=== PATIENT | female | born 1980 | race African-American/Black ===

== ENCOUNTER 2017-12-16 10:38 | Outpatient (CLI) | payer MEDICAID ==
[2017-12-16 11:27] LABS: ABSOLUTE EOSINOPHILS # (AUTO) 0.1 10^3/uL (0.0-0.6); ABSOLUTE LYMPHOCYTES (AUTO) 1.8 10^3/uL (0.5-4.7); ABSOLUTE MONOCYTES (AUTO) 0.5 10^3/uL (0.1-1.4); ABSOLUTE NEUT (AUTO) 6.5 10^3/uL (1.7-8.2); BASOPHILS % (AUTO) 0.4 % (0-2); EOSINOPHILS % (AUTO) 1.3 % (0-6); HEMATOCRIT 33.2 % (36.0-47.0); HEMOGLOBIN 10.9 g/dL (12.0-15.5); MEAN CORPUSCULAR HEMOGLOBIN 26.6 pg (27.0-33.4); MEAN CORPUSCULAR VOLUME 81 fl (80-97); MONOCYTES % (AUTO) 5.3 % (3-13); PLATELET COUNT 372 10^3/uL (150-450); RED BLOOD COUNT 4.11 10^6/uL (3.72-5.28); RED CELL DISTRIBUTION WIDTH 14.9 % (11.5-14.0); TOTAL CELLS COUNTED % (AUTO) 100 %; WHITE BLOOD COUNT 8.9 10^3/uL (4.0-10.5)
[2017-12-16 11:41] LABS: ALANINE AMINOTRANSFERASE 21 U/L (9-52); ALBUMIN 3.5 g/dL (3.5-5.0); ALKALINE PHOSPHATASE 104 U/L (38-126); ANION GAP 13 (5-19); ASPARTATE AMINO TRANSFERASE 13 U/L (14-36); BILIRUBIN,DIRECT 0.2 mg/dL (0.0-0.4); BILIRUBIN,TOTAL 0.2 mg/dL (0.2-1.3); BLOOD UREA NITROGEN 5 mg/dL (7-20); CALCIUM 9.7 mg/dL (8.4-10.2); CARBON DIOXIDE 23 mmol/L (22-30); CHLORIDE 106 mmol/L (98-107); GLUCOSE 101 mg/dL (75-110); POTASSIUM 4.2 mmol/L (3.6-5.0); SODIUM 141.5 mmol/L (137-145); TOTAL PROTEIN 6.6 g/dL (6.3-8.2)
--- NOTE | 2017-12-16 11:43 | RADIOLOGY REPORT (SQ) ---
EXAM DESCRIPTION: U/S OB LIMITED COMPLETED DATE/TIME: 12/16/2017 11:33 am REASON FOR STUDY: patel and growth- limited care COMPARISON: None. TECHNIQUE: Limited transvaginal grayscale ultrasound for evaluation of specific requested obstetrica l parameters. LIMITATIONS: None. FINDINGS: heart rate 157. Posterior grade 1 placenta. Vertex presentation. PATEL 13.0. Gestational age 35 weeks 1 day. IMPRESSION: LIMITED OBSTETRICAL ULTRASOUND WITH MEASURED PARAMETERS DELINEATED ABOVE. Trimester of : Third trimester - 28 weeks to delivery. TECHNICAL DOCUMENTATION: JOB ID: [id number] [employer]- All Rights Reserved Reading location - IP/workstation name: Unknown
[2017-12-16 13:40] LABS: UR PRO/CREAT RATIO RESULT 0.2 mg/mg (0.0-0.2); URINE CREATININE 67.4 mg/dL (16-327)
--- NOTE | 2017-12-16 14:25 | L&D Progress Notes ---
PROGRESS NOTES Datetime Report Generated by CPN: 12/16/2017 14:25 PROGRESS NOTE Impression Other: Hypertension Plan Other: Home with followup Steven Vital Signs : Reviewed Comment: Pt with some mild range hypertension. will begin labetolol and check 24 hour urine protein. Followup MOn. FETUS A FHR - Baseline: 140 Variability: Moderate 6-25bpm FHR Category: Category I : 35.0 SIGNATURE SIGNATURE: [id number] Signature: with User ID: [email or web address]
[2017-12-16 14:30] LABS: URIC ACID 5.2 mg/dL (2.5-7.0)
[2017-12-16 14:34] LABS: APPEARANCE,URINE SLIGHTLY-CLOUDY; BILIRUBIN,URINE NEGATIVE (NEGATIVE); COLOR,URINE YELLOW; GLUCOSE, URINE NEGATIVE (NEGATIVE); KETONES,URINE TRACE mg/dL (NEGATIVE); LEUKOCYTE ESTERASE,URINE SMALL (NEGATIVE); NITRITE,URINE NEGATIVE (NEGATIVE); PROTEIN,URINE NEGATIVE (NEGATIVE); URINE SPECIFIC GRAVITY 1.009; UROBILINOGEN,URINE NEGATIVE mg/dL (<2.0)
== END 2017-12-16 14:38 | disposition home or self-care (01) ==
LOC: LC 10:38
PROVIDERS: ATTEND Obstetrics & Gynecology
PROC: 4A1HXCZ Monitoring of Products of Conception, Cardiac Rate, External Approach (ICD-10-PCS; principal; 2017-12-16)
DX: O16.3 Unspecified maternal hypertension, third trimester (principal); Z3A.34 34 weeks gestation of pregnancy
CPT/HCPCS: 36415; 59025; 76815; 80053; 81005; 82570; 83615; 84156; 84550; 85025

== ENCOUNTER 2018-01-18 11:26 | Inpatient (IN) | payer MEDICAID ==
--- NOTE | 2018-01-18 11:32 | Non Stress Test Report ---
Non Stress Test Datetime Report Generated by CPN: 01/18/2018 11:32 DEMOGRAPHIC EGA NST: 34.0 INDICATION Indication for Study: Ordered by Provider VITAL SIGNS Temperature - NST: 97.9 Pulse - NST: 90 RESP - NST: 20 NBPSYS NST: 146 NBPDIA NST: 81 MONITORING Monitor Explained: Monitor Explained; Test Explained; Patient Verbalized Understanding Time on Monitor: 12/16/2017 12:40 NST INTERVENTIONS NST Interventions: PO Hydration Physician Notified NST: Dr Pretty BABY A: [id number] BABY A Movement : Present Contraction Frequency : occasional Accelerations : 15X15 Decelerations : None Variability : Moderate 6-25bpm NST Review: Meets Criteria for Reactive NST NST Review and Verified By : Lola Velásquez RNC NST Results: Reactive NST REPORT Report Trigger: Send Report
[2018-01-18 12:04] LABS: APPEARANCE,URINE CLOUDY; BILIRUBIN,URINE NEGATIVE (NEGATIVE); COLOR,URINE YELLOW; GLUCOSE, URINE NEGATIVE (NEGATIVE); KETONES,URINE NEGATIVE (NEGATIVE); LEUKOCYTE ESTERASE,URINE SMALL (NEGATIVE); NITRITE,URINE NEGATIVE (NEGATIVE); PROTEIN,URINE 30 mg/dL (NEGATIVE); UROBILINOGEN,URINE NEGATIVE mg/dL (<2.0)
[2018-01-18 12:28] LABS: URINE AMPHETAMINES SCREEN NEGATIVE; URINE BARBITURATES SCREEN NEGATIVE; URINE BENZODIAZEPINES SCREEN NEGATIVE; URINE METHADONE SCREEN NEGATIVE; URINE PHENCYCLIDINE SCREEN NEGATIVE
[2018-01-18 12:33] LABS: BACTERIA (WET MOUNT) 4+ BACTERIA SEEN; EPITHELIALS (WET MOUNT) 3+ EPITHELIALS SEEN; RBCS (WET MOUNT) 1+ RBCS SEEN; T.VAGINALIS (WET MOUNT) NO TRICHOMONAS SEEN; WBCS (WET MOUNT) 2+ WBCS SEEN; YEAST (WET MOUNT) BUDDING YEAST SEEN
[2018-01-18 12:37] LABS: UR PRO/CREAT RATIO RESULT 0.2 mg/mg (0.0-0.2); URINE PROTEIN 36.7 mg/dL (<12)
[2018-01-18 12:38] LABS: ABSOLUTE BASOPHILS # (AUTO) 0.1 10^3/uL (0.0-0.2); ABSOLUTE EOSINOPHILS # (AUTO) 0.1 10^3/uL (0.0-0.6); ABSOLUTE LYMPHOCYTES (AUTO) 2.2 10^3/uL (0.5-4.7); ABSOLUTE MONOCYTES (AUTO) 0.6 10^3/uL (0.1-1.4); ABSOLUTE NEUT (AUTO) 7.5 10^3/uL (1.7-8.2); BASOPHILS % (AUTO) 0.5 % (0-2); EOSINOPHILS % (AUTO) 0.8 % (0-6); HEMATOCRIT 35.1 % (36.0-47.0); HEMOGLOBIN 11.6 g/dL (12.0-15.5); LYMPHOCYTES % (AUTO) 20.7 % (13-45); MEAN CORPUSCULAR HEMOGLOBIN 27.1 pg (27.0-33.4); MEAN CORPUSCULAR HGB CONC 32.9 g/dL (32.0-36.0); MEAN CORPUSCULAR VOLUME 83 fl (80-97); MONOCYTES % (AUTO) 6.2 % (3-13); PLATELET COUNT 336 10^3/uL (150-450); RED BLOOD COUNT 4.26 10^6/uL (3.72-5.28); RED CELL DISTRIBUTION WIDTH 15.5 % (11.5-14.0); SEGMENTED NEUTROPHILS % (AUTO) 71.8 % (42-78); TOTAL CELLS COUNTED % (AUTO) 100 %; WHITE BLOOD COUNT 10.4 10^3/uL (4.0-10.5)
[2018-01-18 12:39] LABS: URINE COCAINE SCREEN UNCONFIRMED POSITIVE; URINE MARIJUANA (THC) SCREEN UNCONFIRMED POSITIVE
[2018-01-18 12:55] LABS: ALANINE AMINOTRANSFERASE 26 U/L (9-52); ALBUMIN 3.4 g/dL (3.5-5.0); ALKALINE PHOSPHATASE 145 U/L (38-126); ANION GAP 12 (5-19); ASPARTATE AMINO TRANSFERASE 21 U/L (14-36); BILIRUBIN,DIRECT 0.2 mg/dL (0.0-0.4); BILIRUBIN,TOTAL 0.2 mg/dL (0.2-1.3); BLOOD UREA NITROGEN 18 mg/dL (7-20); CARBON DIOXIDE 19 mmol/L (22-30); CHLORIDE 111 mmol/L (98-107); GLUCOSE 101 mg/dL (75-110); LDH 328 U/L (313-618); POTASSIUM 4.8 mmol/L (3.6-5.0); SODIUM 141.8 mmol/L (137-145); TOTAL PROTEIN 6.7 g/dL (6.3-8.2); URIC ACID 9.2 mg/dL (2.5-7.0)
[2018-01-18] MEDS ORDERED: RINGERS SOLUTION,LACTATED 1,000 ML IV ONE (12:59)
[2018-01-18] MEDS ORDERED: RINGERS SOLUTION,LACTATED 1,000 ML IV PRN (12:59)
[2018-01-18] MEDS ORDERED: BETAMET ACET/BETAMET NA INJ 6 MG/1 ML IM ONE (13:00)
[2018-01-18] MEDS ORDERED: MAGNESIUM SULFATE 4 GM/100 ML RTUPB IV ONE ×2 (13:01→14:00)
[2018-01-18] MEDS ORDERED: LABETALOL HCL 200 MG TABLET PO SCH ×2 (13:15→22:00)
[2018-01-18 13:27] LABS: RUBELLA INTERPRETATION POSITIVE
[2018-01-18] MEDS ORDERED: BUPIVACAINE HCL 0.25 % INJ/PF (2.5 MG/1 ML) 30 ML VIAL ONE (13:49)
[2018-01-18] MEDS ORDERED: FENTANYL/BUPIVACAINE/NS/PF 300 MCG/150 ML RTUINJ EPI ONE (13:49)
[2018-01-18] MEDS ORDERED: EPHEDRINE SULFATE INJ 50 MG/1 ML AMPULE ONE (13:49)
[2018-01-18] MEDS ORDERED: MISOPROSTOL 0.2 MG TABLET ONE (13:49)
[2018-01-18] MEDS ORDERED: LIDOCAINE 1% INJ-PF (10 MG/ML) 30 ML SDV ONE (13:50)
[2018-01-18] MEDS ORDERED: OXYTOCIN/NORMAL SALINE 0 UNIT/0 ML RTUINJ ONE (13:50)
[2018-01-18 13:58] LABS: CHLAM PCR NOT DETECTED (NOT DETECT); GON PCR NOT DETECTED (NOT DETECT)
[2018-01-18] MEDS ORDERED: PENICILLIN G POTASSIUM 5,000,000 UNIT in DEXTROSE 5%-WATER 100 ML IV ONE (14:00)
[2018-01-18] MEDS ORDERED: MAGNESIUM SULFATE/D5W 1 GM/100 ML RTUPB IV SCH (14:00)
[2018-01-18] MEDS ORDERED: LABETALOL HCL 200 MG TABLET PO ONE (14:00)
[2018-01-18 14:13] LABS: INTERNATIONAL RATION (INR) 0.94; PARTIAL THROMBOPLASTIN TIME 26.7 SEC (23.5-35.8); PROTHROMBIN TIME 13.1 SEC (11.4-15.4)
[2018-01-18] MEDS ORDERED: OXYTOCIN/NORMAL SALINE 20 UNIT/1,000 ML RTUINJ IV PRN ×2 (15:20→17:44)
[2018-01-18] MEDS ORDERED: NORMAL SALINE 250 ML IV PRN (15:33)
[2018-01-18] MEDS ORDERED: DEXTROSE 5%-LACTATED RINGERS 1,000 ML IV ONE (15:45)
[2018-01-18] MEDS ORDERED: FENTANYL CITRATE INJ/PF 100 MCG/2 ML AMPUL IV ONE (16:09)
[2018-01-18] MEDS ORDERED: FENTANYL CITRATE INJ/PF 100 MCG/2 ML AMPUL ONE ×2 (16:10→17:11)
--- NOTE | 2018-01-18 16:24 | Admission Physical ---
Datetime Report Generated by CPN: 01/18/2018 16:24 CURRENT ADMISSION Hx Assessment: No Care except for one visit with nurse at [facility] and one at [facility] Chief Complaint: Uterine Contractions Indication for Induction: Not Applicable Admit Impression : Term, Intrauterine Admit Plan: Admit to Unit; Initiate Labor Protocol; Initiate Protocol ALLERGIES Medication Allergies: No Medication Allergies: No Known Allergies (01/18/2018) Latex: No Latex Allergies OBSTETRICAL HISTORY EDC: 01/27/2018 00:00 : 6 Para: 2 Term: 2 : 0 SAB: 3 IAB: 0 Ectopic: 0 Livin Cesareans: 1 VBACs: 0 Multiple Births: 0 Gestational Diabetes: No Rh Sensitization: No Incompetent Cervix: No MAURO: No Infertility: No ART Treatment: No Uterine Anomaly: No IUGR: No Hx Previous C/S: No Macrosomia: No Hx Loss/Stillborn: No PIH: Yes Hx : No Placenta Previa/Abruption: No Depression/PP Depression: Yes PTL/PROM: No Post Hemorrhage: No Current Procedures: Ultrasound; NST Obstetrical History Comments: G1: 2004 full term vaginal G2: 2015 34 weeks, C/S, pre-e G3: current SEE RECORDS Alcohol: No Marijuana : Yes Cocaine: Yes Last Used: 01/17/18 Cocaine Comments: Pt reports no but tested positive on UDS 01/18/18 Other Illicit Drugs: No Cigarettes: Never Smoker. 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 Surgery: No Heart Disease: No Hosp/Surgery: Yes Autoimmune Disorder: No Anesthetic Complications: No Kidney Disease: No Abnormal Pap Smear: No Neuro/Epilepsy: No Psychiatric Disorders: Yes Other Medical Diseases: No Hepatitis/Liver Disease: No Significant Family History: No Varicosities/Phlebitis: No Trauma/Violence : No Thyroid Dysfunction: No Medical History Comments: C/SECTION- 2015 INFECTIOUS HISTORY Gonorrhea: No Genital Herpes: No Chlamydia: No Tuberculosis: No Syphilis: No Hepatitis: No HIV/AIDS Exposure: No Rash or Viral Illness: No HPV: No PHYSICAL EXAM General: Normal HEENT: Deferred Neurologic: Deferred Thyroid: Deferred Heart: Normal Lungs: Normal Breast: Normal Back: Normal Abdomen: Normal Genitourinary Exam: Normal Extremities: Normal DTRs: Normal Pelvic Type: Adequate Physical Exam Comments: pelvis proven to 7lbs Vital Signs: Reviewed Details Vital Signs: severe range Dr. Grace in room and managing pt. VAGINAL EXAM Dilatation: 5 Effacement: 70 Station: -2 Contraction Comments: 2-3 MEMBRANES Membranes: Ruptured Amniotic Fluid Color: Clear FETUS A EGA: 34.0 Monitoring: Internal Scalp Electrode FHR- Baseline: 135 Variability: Minimal - Undetectable to <=5bpm Decelerations: Early; Late; Variable FHR Category: Category II FHR Comments: pt. had cocaine and marijuana last night Presentation: Vertex Admit Comment: 37yo @ 38w5d per 26w2d sono. Pt. is B pos, with neg GC/Chlam on admission and all other labs pending. No care except for a one time consult at [facility] and a nurse visit at [facility]. complicated by CHTN (on labetalol 200mg bid), morbid obesity (BMI 53.4 @ [facility] nurse visit), bipolar disorder, schizophrenia, anxiety, depression, cocaine and marijuana use multiple times in including last night. Also with a Hgb A1c of 6.2 on admission. Hx of vaginal delivery in 2004 and primary in 2016 for hypertensive crisis/FHR intolerance. Pt. desires to TOLAC. Presented to L_D with contractions and had cervical change and admitted per Dr. Grace. Thought to be at first due to LMP discrepancy. Records reviewed and AMI confirmed. Pt. now with epidural and 9cm. Dr. Grace remains in unit and anesthesia aware of laboring TOLAC. PLANS FOR LABOR AND DELIVERY Labor and Delivery: None Pain Management: Epidural Feeding Preference: Formula Benefit of Breast Feed Discussed: Yes Circumcision: N/A INFORMED CONSENT Assignment: Lillie Grace MD Signature: with User ID: [email or web address] : with User ID: [email or web address]
[2018-01-18] MEDS ORDERED: PENICILLIN G-K 5 MILLION UNIT VIAL ONE (17:03)
[2018-01-18] MEDS ORDERED: PROMETHAZINE HCL INJ 25 MG/1 ML VIAL IV PRN (17:44)
[2018-01-18] MEDS ORDERED: PSEUDOEPHEDRINE HCL 30 MG TABLET PO PRN (17:44)
[2018-01-18] MEDS ORDERED: PROMETHAZINE HCL 25 MG TABLET PO PRN (17:44)
[2018-01-18] MEDS ORDERED: MEASLES,MUMPS&RUBELLA VACC/PF 0.5 ML VIAL SUBCUT PRN (17:44)
[2018-01-18] MEDS ORDERED: GLYCERIN/WITCH HAZEL LEAF 1 EACH MED..PAD TP PRN (17:44)
[2018-01-18] MEDS ORDERED: ACETAMINOPHEN WITH CODEINE #3 TABLET PO PRN (17:44)
[2018-01-18] MEDS ORDERED: BENZOCAINE/MENTHOL AEROSOL SPRAY 56 ML TOP PRN (17:44)
[2018-01-18] MEDS ORDERED: DIPHENHYDRAMINE HCL 25 MG CAPSULE PO PRN (17:44)
[2018-01-18] MEDS ORDERED: DIBUCAINE 1% OINTMENT 28 GM TP PRN (17:44)
[2018-01-18] MEDS ORDERED: ZOLPIDEM TARTRATE 5 MG TABLET PO PRN (17:44)
[2018-01-18] MEDS ORDERED: MAGNESIUM HYDROXIDE SUSP 30 ML UDCUP PO PRN (17:44)
[2018-01-18] MEDS ORDERED: DIPH/PERTUSS(ACELL)/TETANUS VAC/PF 0.5 ML SYR (>=10YO) IM PRN (17:44)
[2018-01-18] MEDS ORDERED: ACETAMINOPHEN 325 MG TABLET PO PRN (17:44)
[2018-01-18] MEDS ORDERED: PROMETHAZINE HCL 25 MG SUPP.RECT PR PRN (17:44)
[2018-01-18] MEDS ORDERED: NA PHOS,M-B/NA PHOS,DI-BA (ADULT) 133 ML ENEMA PR PRN (17:44)
[2018-01-18] MEDS ORDERED: PENICILLIN G POTASSIUM 2,500,000 UNIT in DEXTROSE 5%-WATER 50 ML IV SCH (18:00)
--- NOTE | 2018-01-18 18:23 | Warning Signs in Babies ---
VOD Warning Signs Datetime Report Generated by [facility]: 01/18/2018 18:23 VOD#608 -Warning Signs in Babies: Needs to be viewed. (12/16/2017 11:12:Callie Foote RN)
[2018-01-18] MEDS ORDERED: HYDRALAZINE HCL INJ/PF 20 MG/1 ML SDV ONE ×2 (18:27→19:13)
[2018-01-18] MEDS ORDERED: HYDRALAZINE HCL INJ/PF 20 MG/1 ML SDV IV ONE ×2 (18:31→19:10)
[2018-01-18] MEDS ORDERED: DOCUSATE SODIUM 100 MG CAPSULE ONE (18:56)
[2018-01-18] MEDS ORDERED: LABETALOL HCL 200 MG TABLET ONE (18:56)
[2018-01-18] MEDS ORDERED: FERROUS SULFATE 325 MG TABLET PO ONE (18:56)
[2018-01-18] MEDS: DOCUSATE SODIUM 100 MG CAPSULE PO SCH (18:58)
[2018-01-18] MEDS: FERROUS SULFATE 325 MG TABLET PO SCH (18:58)
--- NOTE | 2018-01-18 20:28 | Delivery Summary ---
Del Sum A-C Datetime Report Generated by CPN: 01/18/2018 20:28 DELIVERY PERSONNEL DELIVERY PERSONNEL: [id number] Delivery Doctor:: Lillie Grace MD Labor and Delivery Nurse:: Callie Foote RN Nursery Nurse:: Camelia Durant RN Nursery Nurse:: Stacie Diamond RN Intervention Manager/CYBER SECURITY: Karma Dudley CNA II MATERNAL INFORMATION Delivery Anesthesia: Epidural Medications After Delivery: Pitocin Bolus-Please Comment; Pitocin Drip 20 Units/1000ml NSS Maternal Complications: Other Complication Details: LIMITED PNC; + COCAINE _ THC; PRE-ECLAMPSIA; PRIOR C/SECTION Provider Comments: FHR with repetitive deep variable decels. Reviewed with patient AL and need to reduce anterior lip of cervix. Pt inquired regarding a section since she does not like cervical exams. Reviewed with paitnet that need to deliver and would be much faster to deliver vaginally. She wished to wait on and reviewed again with need to proceed with delivery. spoke with patient and patient agreed for vaginal exam and attempt at reduction of anterior lip. Patient positioned and anterior lip of the cervix reduced. She had recieved 50mcg fentanyl apporx 45 min prior to delivery and then within 10 minutes from delivery as she would not consent to cervical exam without medication. VMI delivered in JESENIA presentation in one contraction after reducing the anterior lip of cervix. with spontaneous breath then to warmer for NRP and decreased respirations and tone. Infant transported to NICU. No perineal lacerations. FF at U after delivery of placenta. Mother stable upon provider leaving the room. LABOR SUMMARY EDC: 01/27/2018 00:00 No. Babies in Womb: 1 Attempted: Yes Labor Anesthesia: Epidural LABOR INFORMATION Reason for Induction: Not Applicable Onset of Labor: 01/18/2018 12:38 Complete Dilatation: 01/18/2018 17:16 Oxytocin: N/A Group B Beta Strep: UNKNOWN Antibiotics # of Doses: 1 Antibiotics Time of Last Dose: 1708 Name of Antibiotic Given: PENICILLIN G Steroids Given: Partial Course; < 24 Hours before Delivery Reason Steroids Not Administered: Indication MEMBRANES Membranes Rupture Method: Spontaneous Rupture of Membranes: 01/18/2018 11:12 Length of Rupture (hr): 6.12 Amniotic Fluid Color: Clear Amniotic Fluid Amount: Small Amniotic Fluid Odor: Foul STAGES OF LABOR Stage 1 hr: 4 Stage 1 min: 38 Stage 2 hr: 0 Stage 2 min: 3 Stage 3 hr: 0 Stage 3 min: 2 Total Time in Labor hr: 4 Total Time in Labor min: 43 VAGINAL DELIVERY Episiotomy: None Laceration #1: None Laceration Extension #1: N/A Laceration Repair: Not Applicable Sponge Count Correct: N/A Sharps Count Correct: N/A CSECTION DELIVERY Primary Indication: N/A Secondary Indication: N/A CSection Incidence: N/A Labor: N/A Elective: N/A CSection Incision: N/A BABY A INFORMATION Delivery Date/Time: 01/18/2018 17:19 Method of Delivery: Vaginal Born in Route : No : N/A Forceps: N/A Vacuum Extraction: N/A Shoulder Dystocia : No PRESENTATION/POSITION BABY A Presentation: Cephalic Cephalic Presentation: Vertex Vertex Position: Left Occipital Anterior PLACENTA INFORMATION BABY A Placenta Delivery Time : 01/18/2018 17:21 Placenta Method of Delivery: Spontaneous Placenta Status: Delivered SCORES BABY A Heart Rate 1 min: Slow, Below 100 bpm Resp Effort 1 min: Absent Reflex Irritability 1 min: No Response Muscle Tone 1 min: Flaccid Color 1 min: Blue/Pale Resuscitation Effort 1 min: Tactile Stimulation; PPV/NCPAP SCORE 1 MIN: 1 Heart Rate 5 min: >100 bpm Resp Effort 5 min: Slow, Irregular Reflex Irritability 5 min: No Response Muscle Tone 5 min: Flaccid Color 5 min: Blue/Pale Resuscitation Effort 5 min: PPV/NCPAP SCORE 5 MIN: 3 Heart Rate 10 min: >100 bpm Resp Effort 10 min: Slow, Irregular Reflex Irritability 10 min: Cough or Sneeze or Pulls Away Muscle Tone 10 min: Flaccid Color 10 min: Blue/Pale Resuscitation Effort 10 min: PPV/NCPAP SCORE 10 MIN: 5 Heart Rate 15 min: >100 bpm Resp Effort 15 min: Slow, Irregular Reflex Irritability 15 min: Cough or Sneeze or Pulls Away Muscle Tone 15 min: Some Flexion of Extremities Color 15 min: Body [place], Extremities Blue Resuscitation Effort 15 min: Oxygen; PPV/NCPAP SCORE 15 MIN: 7 INFORMATION BABY A Gestational Age at Delivery: 34.3 Gestational Status: Late - 34- 36.6 Weeks Infant Outcome : Liveborn Infant Condition : Critical Infant Sex: Male IDENTIFICATION BABY A Infant Verification Date/Time: 01/18/2018 17:49 ID Band Number: [id number] Mother's Name Verified: Yes RN Verifying : J.Field, RN Additional Verifying Personnel: TrentonZach, CYBER SECURITY/US WEIGHT/LENGTH BABY A Birthweight (gm): 3970 Weight (lb): 8 Infant Weight (oz): 12 Length (in): 21.00 Infant Length (cm): 53.34 CORD INFORMATION BABY A No. Cord Vessels: 3 Nuchal Cord : N/A Cord Blood Taken: Yes-For Storage (Mom's Blood type +) ASSESSMENT BABY A Infant Complications: Other Infant Complications- Other: LIMITED PNC; 34.3 WEEK IUP Skin to Skin: No BABY B INFORMATION : N/A SIGNATURES Signature: with User ID: [email or web address]
[2018-01-18] MEDS: LABETALOL HCL 200 MG TABLET PO SCH (22:30)
[2018-01-18] MEDS ORDERED: IBUPROFEN 800 MG TABLET ONE (22:32)
[2018-01-18] MEDS ORDERED: FAMOTIDINE 20 MG TABLET ONE (22:32)
[2018-01-18] MEDS ORDERED: NIFEDIPINE 30 MG TAB.ER.24 PO ONE ×2 (22:32→23:00)
[2018-01-18] MEDS: FAMOTIDINE 20 MG TABLET PO SCH (22:37)
[2018-01-18] MEDS: IBUPROFEN 800 MG TABLET PO SCH (22:37)
[2018-01-19 07:43] LABS: HEMATOCRIT 32.5 % (36.0-47.0); HEMOGLOBIN 10.5 g/dL (12.0-15.5); MEAN CORPUSCULAR HEMOGLOBIN 26.2 pg (27.0-33.4); MEAN CORPUSCULAR HGB CONC 32.2 g/dL (32.0-36.0); MEAN CORPUSCULAR VOLUME 81 fl (80-97); PLATELET COUNT 298 10^3/uL (150-450); RED BLOOD COUNT 3.99 10^6/uL (3.72-5.28); RED CELL DISTRIBUTION WIDTH 15.4 % (11.5-14.0); WHITE BLOOD COUNT 17.5 10^3/uL (4.0-10.5)
[2018-01-19] MEDS ORDERED: LABETALOL HCL 200 MG TABLET ONE (08:10)
[2018-01-19] MEDS: LABETALOL HCL 200 MG TABLET PO SCH ×3 (08:14→21:04)
[2018-01-19 08:44] LABS: HEPATITIS C VIRUS AB <0.1 s/co ratio (0.0-0.9)
[2018-01-19 10:05] LABS: HEPATITS B SURFACE ANTIGEN Negative (Negative)
[2018-01-19] MEDS: PRENATAL VITAMIN W DHA CAPSULE PO SCH (11:16)
[2018-01-19] MEDS: SENNOSIDES/DOCUSATE 8.6-50 MG 1 EACH TABLET PO SCH (11:16)
[2018-01-19] MEDS: FERROUS SULFATE 325 MG TABLET PO SCH ×2 (11:16→18:06)
[2018-01-19] MEDS: DOCUSATE SODIUM 100 MG CAPSULE PO SCH ×2 (11:17→18:06)
[2018-01-19] MEDS: FAMOTIDINE 20 MG TABLET PO SCH ×2 (11:17→21:03)
[2018-01-19] MEDS: IBUPROFEN 800 MG TABLET PO SCH ×3 (11:18→21:03)
--- NOTE | 2018-01-19 11:22 | PDOC PROGRESS REPORT ---
Subjective-OB Progress Note for:: 01/19/18 Subjective: s/p day #1 denies concerns, states lochia is stable, pain well controlled, voiding without difficulty. Physical Exam (OB) Vital Signs: Intake & Output 01/18/18 01/19/18 01/20/18 06:59 06:59 06:59 Weight 152.6 kg - Lochia Lochia Amount: Small 10-25 ml Lochia Color: Rubra/Red - Abdomen Description: Soft, Round Hernia Present: Yes Fundal Description: Firm Fundal Height: 1/u - 2/u Objective-Diagnostic Laboratory: 01/19/18 07:01 01/18/18 12:14 01/18/18 01/18/18 01/18/18 11:43 12:14 12:14 WBC 10.4 RBC 4.26 Hgb 11.6 L Hct 35.1 L MCV 83 MCH 27.1 MCHC 32.9 RDW 15.5 H Plt Count 336 Seg Neutrophils % 71.8 Lymphocytes % 20.7 Monocytes % 6.2 Eosinophils % 0.8 Basophils % 0.5 Absolute Neutrophils 7.5 Absolute Lymphocytes 2.2 Absolute Monocytes 0.6 Absolute Eosinophils 0.1 Absolute Basophils 0.1 Sodium Potassium Chloride Carbon Dioxide Anion Gap BUN Creatinine Est GFR ( Amer) Est GFR (Non-Af Amer) Glucose Uric Acid Calcium Total Bilirubin AST ALT Alkaline Phosphatase Total Protein Albumin TSH 3.88 Urine Color YELLOW Urine Appearance CLOUDY Urine pH 5.0 Ur Specific [place] 1.020 Urine Protein 30 H Urine Glucose (UA) NEGATIVE Urine Ketones NEGATIVE Urine Blood NEGATIVE Urine Nitrite NEGATIVE Ur Leukocyte Esterase SMALL H Blood Type Antibody Screen 01/18/18 01/18/18 01/19/18 12:14 12:14 07:01 WBC 17.5 H RBC 3.99 Hgb 10.5 L Hct 32.5 L MCV 81 MCH 26.2 L MCHC 32.2 RDW 15.4 H Plt Count 298 Seg Neutrophils % Lymphocytes % Monocytes % Eosinophils % Basophils % Absolute Neutrophils Absolute Lymphocytes Absolute Monocytes Absolute Eosinophils Absolute Basophils Sodium 141.8 Potassium 4.8 Chloride 111 H Carbon Dioxide 19 L Anion Gap 12 BUN 18 Creatinine 1.19 Est GFR ( Amer) > 60 Est GFR (Non-Af Amer) 52 L Glucose 101 Uric Acid 9.2 H Calcium 10.0 Total Bilirubin 0.2 AST 21 ALT 26 Alkaline Phosphatase 145 H Total Protein 6.7 Albumin 3.4 L TSH Urine Color Urine Appearance Urine pH Ur Specific [place] Urine Protein Urine Glucose (UA) Urine Ketones Urine Blood Urine Nitrite Ur Leukocyte Esterase Blood Type B POSITIVE Antibody Screen NEGATIVE Assessment and Plan(PN) - Assessment and Plan (1) Cannabis abuse Is this a current diagnosis for this admission?: Yes Plan: d/c conference planner (2) Chronic hypertension Is this a current diagnosis for this admission?: Yes Plan: monitor bp (3) Cocaine abuse affecting Qualifiers: Trimester: third trimester Qualified Code(s): O99.323 - Drug use complicating , third trimester; F14.10 - Cocaine abuse, uncomplicated; F14.10 - Cocaine abuse, uncomplicated; F14.10 - Cocaine abuse, uncomplicated Is this a current diagnosis for this admission?: Yes Plan: d/c conference planner (4) History of delivery Is this a current diagnosis for this admission?: Yes Plan: routine post op care (5) Limited care Qualifiers: Trimester: third trimester Qualified Code(s): O09.33 - Supervision of with insufficient care, third trimester Is this a current diagnosis for this admission?: Yes Plan: routine pp care (6) Vaginal after , delivered, current hospitalization Is this a current diagnosis for this admission?: Yes Plan: routine pp care - Time Spent with Patient Time with patient: Less than 15 minutes Critical Time spent with patient: Less than 15 minutes Medications reviewed and adjusted accordingly: Yes - Disposition Anticipated Discharge: Home
[2018-01-19] MEDS: ACETAMINOPHEN WITH CODEINE #3 TABLET PO PRN (16:32)
[2018-01-19] MEDS ORDERED: NIFEDIPINE 30 MG TAB.ER.24 PO SCH (22:00)
[2018-01-20] MEDS: ACETAMINOPHEN WITH CODEINE #3 TABLET PO PRN ×2 (04:56→09:23)
[2018-01-20] MEDS: IBUPROFEN 800 MG TABLET PO SCH ×2 (06:21→13:10)
[2018-01-20] MEDS: LABETALOL HCL 200 MG TABLET PO SCH ×2 (06:22→13:10)
[2018-01-20 09:08] VITALS: BP 126/79
[2018-01-20] MEDS: FERROUS SULFATE 325 MG TABLET PO SCH (09:15)
[2018-01-20] MEDS: FAMOTIDINE 20 MG TABLET PO SCH (09:15)
[2018-01-20] MEDS: PRENATAL VITAMIN W DHA CAPSULE PO SCH (09:15)
[2018-01-20] MEDS: DOCUSATE SODIUM 100 MG CAPSULE PO SCH (09:15)
[2018-01-20] MEDS: SENNOSIDES/DOCUSATE 8.6-50 MG 1 EACH TABLET PO SCH (09:15)
--- NOTE | 2018-01-20 09:24 | PDOC PROGRESS REPORT ---
Subjective-OB Progress Note for:: 01/20/18 Subjective: Asleep on rounds, asking questions, bottle feeding, baby in NICU, ready to go home, eating well Physical Exam (OB) Vital Signs: Temp Pulse Resp BP Pulse Ox 98.1 F 81 18 126/79 H 94 01/20/18 08:00 01/20/18 08:00 01/20/18 08:00 01/20/18 08:00 01/20/18 08:00 Intake & Output 01/19/18 01/20/18 01/21/18 06:59 06:59 06:59 Intake Total 350 Balance 350 Weight 152.6 kg - PIH/Pre-Eclampsia DTR's: 1 + Clonus: Negative Headache: Present Epigastric Pain: No Visual Changes: No - Lochia Lochia Amount: Moderate 25-50 ml Lochia Color: Rubra/Red - Abdomen Description: Soft, Round Hernia Present: No Fundal Description: Firm, Midline Fundal Height: u/u - u/2 Objective-Diagnostic Laboratory: 01/19/18 07:01 01/18/18 12:14 Assessment and Plan(PN) - Assessment and Plan (1) Vaginal after , delivered, current hospitalization Is this a current diagnosis for this admission?: Yes (2) History of delivery Is this a current diagnosis for this admission?: Yes (4) Chronic hypertension Is this a current diagnosis for this admission?: Yes (5) Limited care Qualifiers: Trimester: third trimester Qualified Code(s): O09.33 - Supervision of with insufficient care, third trimester Is this a current diagnosis for this admission?: Yes - Time Spent with Patient Time with patient: Less than 15 minutes Smoking Education Provided: Over 3 minutes Medications reviewed and adjusted accordingly: Yes - Disposition Anticipated Discharge: Home Within: Other - home today, discussed not smoking around baby, no cocaine, states she is not addicted, discussed control, ? BTL, importance of taking BP medicine and results of hypertension, unsure when baby is going home
--- NOTE | 2018-01-20 09:30 | PDOC DISCHARGE SUMMARY ---
Final Diagnosis Discharge Date: 01/20/18 - Final Diagnosis (1) Vaginal after , delivered, current hospitalization Is this a current diagnosis for this admission?: Yes (2) History of delivery Is this a current diagnosis for this admission?: Yes (3) Obesities, morbid Is this a current diagnosis for this admission?: Yes (4) Chronic hypertension Is this a current diagnosis for this admission?: Yes (5) Limited care Is this a current diagnosis for this admission?: Yes Discharge Data - Discharge Medication Prescriptions: Nifedipine [Procardia XL 30 mg Tablet] 30 mg PO QHS #30 tab.er.24 Labetalol HCl [Normodyne 200 mg Tablet] 200 mg PO Q8 #90 tablet Home Medications: Vit Calc,Iron,Folic [ Vitamins] 1 each PO DAILY #30 tablet Labetalol HCl [Normodyne 200 mg Tablet] 200 mg PO Q8 #90 tablet 01/20/18 Nifedipine [Procardia XL 30 mg Tablet] 30 mg PO QHS #30 tab.er.24 01/20/18 Gestational Age: 34.3 Reason(s) for Admission: PROM, Status - Unknow GBS, Cocaine and TCH ingestion prior to admission Procedures: Ultrasound Intrapartum Procedure(s): Spontaneous Vaginal Delivery - Diagnosis Test Laboratory: Temp Pulse Resp BP Pulse Ox 98.1 F 81 18 126/79 H 94 01/20/18 08:00 01/20/18 08:00 01/20/18 08:00 01/20/18 08:00 01/20/18 08:00 01/18/18 01/18/18 01/19/18 11:43 12:14 07:01 RBC 4.26 3.99 Hgb 11.6 L 10.5 L Hct 35.1 L 32.5 L Urine Opiates Screen NEGATIVE - Discharge information/Instructions Discharge Activity: Activity As Tolerated, No Lifting Over 10 Pounds, No Lifting /Push/Pulling, Pelvic Rest Discharge Diet: As Tolerated, Regular Disposition: HOME, SELF-CARE Follow up with: [facility] in: 1, Weeks
[2018-01-24 10:05] LABS: CANNABINOID CONFIRMATION UR Positive (.); COCAINE METABOLITE CONFIRM UR Positive (.)
== END 2018-01-20 15:47 | disposition home or self-care (01) | DRG 775 ==
LOC: LC 11:26 → LR 12:53 → 2S 01-19 09:52
PROVIDERS: ADMIT Student in an Organized Health Care Education/Training Program; ATTEND Student in an Organized Health Care Education/Training Program
PROC: 10E0XZZ Delivery of Products of Conception, External Approach (ICD-10-PCS; principal; 2018-01-18)
DX: O99.324 Drug use complicating childbirth (principal); Z68.43 Body mass index [BMI] 50.0-59.9, adult; F14.90 Cocaine use, unspecified, uncomplicated; F12.90 Cannabis use, unspecified, uncomplicated; O16.4 Unspecified maternal hypertension, complicating childbirth; O76 Abnormality in fetal heart rate and rhythm complicating labor and delivery; O34.211 Maternal care for low transverse scar from previous cesarean delivery; N85.8 Other specified noninflammatory disorders of uterus; O99.344 Other mental disorders complicating childbirth; F31.9 Bipolar disorder, unspecified; F20.9 Schizophrenia, unspecified; O99.214 Obesity complicating childbirth; E66.01 Morbid (severe) obesity due to excess calories; Z3A.34 34 weeks gestation of pregnancy; Z37.0 Single live birth
CPT/HCPCS: 36415; 80053; 80307; 80353; 81005; 82570; 83036; 83615; 84156; 84443; 84550; 85025; 85027; 85610; 85730; 86592; 86701; 86762; 86803; 86804; 86850; 86900; 86901; 86920; 87081; 87086; 87088; 87210; 87340; 87491; 87591; 88307; 90715; 94760; 96372; 99465; G0480; J0360; J2540; J2590; J3010; J3475; J3490